=== PATIENT | male | born 1980 | race Caucasian/White ===

== ENCOUNTER 2020-12-27 12:59 | Emergency (ER) | payer MEDICAID, SELFPAY ==
[2020-12-27] VITALS (11 sets, daily range): BP systolic 114–132; BP diastolic 63–98; PULSE 62–92; RESP 9–29; TEMP 36.6; O2SAT 98–100
--- NOTE | 2020-12-27 13:00 | RT.EKG_ITS ---
APPROVED REPORT Exam: Resting ECG Patient Location: E HR:84 bpm ECG Measurements Heart Rate 84 AXIS NJ 135 P 22 QRSd 84 QRS 57 QT 386 T 29 QTc 455 Conclusion Sinus rhythm. Nondiagnostic
--- NOTE | 2020-12-27 13:15 | DI.RAD_ITS ---
EXAM: XR CHEST 2V PA LATERAL CLINICAL HISTORY: chest pain TECHNIQUE: 2D digital imaging was performed. COMPARISON: No exams were available for comparison FINDINGS: MEDIASTINUM: Normal. HEART: Normal. PULMONARY VASCULATURE: Normal. LUNGS: Clear. PLEURAL SPACE: No pleural effusion or pneumothorax. BONE:Within normal limits for the patient's age. OTHER FINDINGS:Normal. IMPRESSION: No acute pulmonary findings. DATA REPOSITORY: RADIATION DOSE DELIVERED:
--- NOTE | 2020-12-27 13:26 | ED.GENADUL_ITS ---
Discharge Plan Disposition Patient Disposition: HOME Condition: Good Discharge Details Clinical Impression: Chest pain, Edema, peripheral Primary Care Provider: Mitul Byrd ED Provider: Yessica Stephenson Home Meds and New Rx's Prescriptions: No Action methadone 40 mg Tablet,Soluble 65 mg PO ONCE RF: 0 furosemide 20 mg Tablet 20 mg PO DAILY AM RF: 0 gabapentin 300 mg Tablet 300 mg PO PRN PRNRF: 0 Discharge Instructions Instructions: Chest Pain (ED) Additional Instructions: Work on improving your diet Recommend eating a balanced diet with healthy proteins such as chicken or fish, veggies, watch sodium in your diet as this can lead to increased swelling in your legs Elevate your legs when you are seated Try to be more active, we until after your stress test and talk to your doctor about an exercise plan Following up for nutrition appointment might be beneficial Take a baby aspirin until you see your doctor for follow-up, 81 mg Do not drink alcohol Cut down on your soda intake Continue taking your Lasix Use your PHILLIP stockings, remove at night, use during the day Return earlier should you have worsening chest pain, worsening shortness of breath, or with any new or progressive symptoms Medical Decision Making No abdominal bruit or pulsatile mass, excellent distal pulses, no suspicion for aortic abnormality PERC negative for pulmonary embolism Troponin negative without chest pain 1 PM yesterday, given her current 2 I think 1 troponin is reasonable EKG does not show acute pathology Chest x-ray within normal limits This was interpreted by radiology I reviewed interpretation and x-ray Patient does have a low albumin and mild elevation in liver enzymes, I suspect this is related to fatty liver The albumin was discussed with patient he will follow up with his primary care physician This could be partially responsible for his peripheral edema We discussed diet and elevation and PHILLIP stockings were applied Early return precautions discussed and patient expressed understanding Patient is reasonable for discharge at this time He has a outpatient stress test ordered for 2 weeks in [place] per patient and he is instructed to follow through this very important Differential Diagnosis Differential Diagnosis: Pulmonary embolism, angina, Aortic Dissection CHF Medical Records Medical records reviewed: Yes I reviewed the patient's medical records. Lab Data Lab results reviewed: Yes I reviewed the patient's lab results. HPI This 40-year-old male presents with reports of chest pain intermittently for the past several months and peripheral edema. He has been evaluated at [facility] for this on several occasions but presents here because he felt like the quality of care was subpar . He states he last had chest pain yesterday midday. He states it lasted approximately 10 minutes. He was not exerting himself and the pain came on. He states his last episode of chest pain prior to that was approximately 2 weeks prior. He denies exertional symptoms. He denies any shortness of breath. Does report he has had fairly significant peripheral edema. He denies any new medications. Patient does have concerning family history with dad having AR at 36 and brother having coronary artery bypass at the age of 30. Patient's Helicobacter. He denies history of hyperlipidemia. He has a remote 20+ year history of IV drug abuse but has not utilized any IV drug since 1999. He takes methadone, this is not a new medication for patient. Denies recent flights, surgeries, long drives, denies exogenous hormones. Denies prior history of coagulopathy. He was started on Lasix by [facility] several days ago which is helping the swelling in his legs. He denies any current chest pain, shortness of breath, nausea, vomiting, or diaphoresis. Aside from some peripheral edema he is asymptomatic at that time. General Date/Time Provider Initiated Documentation: 12/27/20 13:02 . Related Data Home Medications Medication Instructions Recorded Confirmed furosemide 20 mg PO DAILY AM 12/27/20 12/27/20 gabapentin 300 mg PO PRN PRN 12/27/20 12/27/20 methadone 65 mg PO ONCE 12/27/20 12/27/20 Allergies Allergy/AdvReac Type Severity Reaction Status Date / Time No Known Allergies Allergy Unverified 12/27/20 13:08 General Stated Complaint: Chest Pain NICOLE: 2 Review of Systems Narrative: Review of systems negative x7 aside from where indicated in HPI, specifically no current chest pain, shortness of breath, diaphoresis, or nausea, no history of coagulopathy PFSH Social History Smoking/Tobacco Use Status: Never Smoking risk assessment performed?: Yes Alcohol Intake: current Drug use: Never Substance use type: does not use Do you feel safe at home: Yes Do you feel safe in your relationship?: Yes Exam Const General: cooperative and no acute distress Eyes Conjunctivae: conjunctivae normal Chest Chest: normal inspection of the chest Other: No reproducible chest wall tenderness Resp Effort & Inspection: normal respiratory effort Auscultation: clear to auscultation bilaterally Cardio Rate: regular rate Rhythm: regular rhythm Pulses: normal peripheral pulses GI Other: No CVA tenderness, distal pulses intact Skin General skin exam: no rashes or lesions noted Neuro General: patient alert and patient oriented x3 Extrem Other: Symmetrical 2+ edema lower extremities bilaterally DP and PT pulses intact Psych Appearance: well kempt Course Vital Signs Vital signs: Vital Signs Temperature 36.6 C 12/27/20 13:03 Pulse 92 H 12/27/20 13:03 Respiratory Rate 16 12/27/20 13:03 Blood Pressure 122/84 12/27/20 13:03 Pulse Oximetry 99 12/27/20 13:03 Temperature 36.6 C 12/27/20 13:03 Temperature Source Tympanic 12/27/20 13:03 Pulse 92 H 12/27/20 13:03 Respiratory Rate 16 12/27/20 13:13 Respiratory Effort Non-Labored 12/27/20 13:13 Respiratory Depth Normal 12/27/20 13:13 Respiratory Pattern Normal 12/27/20 13:13 Blood Pressure 122/84 12/27/20 13:03 Blood Pressure Position Sitting 12/27/20 13:03 Pulse Oximetry 99 12/27/20 13:03 Oxygen Delivery Method Room Air 12/27/20 13:03 Oxygen Flow Rate 0 12/27/20 13:03 Pain Level 0 12/27/20 13:13
[2020-12-27 13:31] LABS: Abs Immature Grans 0.05 10^3/uL (0.0-0.06); Absolute Basophil Count 0.04 10^3/uL (0.0-0.2); Absolute Eosinophil Count 0.14 10^3/uL (0.0-0.7); Absolute Lymphocyte Count 3.08 10^3/uL (1.2-3.4); Absolute Monocyte Count 0.77 10^3/uL (0.1-0.8); Absolute Neutrophil Count 2.92 10^3/uL (1.2-6.7); Basophils % 0.6; HCT 37.6 % (40.0-50.0); HGB 12.7 g/dL (13.5-17.5); Immature Grans % 0.7; MCH 28.8 pg (27.0-33.0); MCHC 33.8 % (32.0-36.0); MCV 85.3 fL (80-95); Neutrophils % 41.7; Nucleated RBC 0 %; Platelet Count 240 10^3/uL (130-400); RBC 4.41 10^6/uL (4.36-5.78); RDW 12.8 % (11.8-14.1); RDW-SD 39.7 fL
[2020-12-27 13:47] LABS: ALT 93 U/L (16-63); AST 53 U/L (15-37); Albumin 3.3 g/dL (3.4-5.0); Alkaline Phosphatase 75 U/L (46-116); Anion Gap 5.6 mmol/L (3-11); BUN 16 mg/dL (7-18); Bilirubin, Total 0.5 mg/dL (0.2-1.0); CO2 32.4 mmol/L (21.0-32.0); CREATININE 1.2 mg/dL (0.70-1.30); Calcium 8.8 mg/dL (8.5-10.1); Chloride 102 mmol/L (98-107); Glucose 112 mg/dL (74-106); Sodium 140 mmol/L (136-145); Total Protein 6.7 g/dL (6.4-8.2)
[2020-12-27 13:48] LABS: Troponin I < 0.05 ng/mL (<0.06)
[2020-12-27 13:53] LABS: NT-proBNP 7 pg/mL (<300)
--- NOTE | 2020-12-27 14:04 | DI.VRAD_ITS ---
PROCEDURE INFORMATION: Exam: XR Chest, 2 Views Exam date and time: 12/27/2020 1:52 PM Age: 40 years old Clinical indication: Other: Chest pain TECHNIQUE: Imaging protocol: XR of the chest Views: 2 views. COMPARISON: No relevant prior studies available. FINDINGS: Lungs: Unremarkable. No consolidation. Pleural spaces: Unremarkable. No pleural effusion. No pneumothorax. Heart/Mediastinum: Unremarkable. No cardiomegaly. Bones/joints: Unremarkable. IMPRESSION: No evidence for acute abnormality in the chest. Dictated and Authenticated by: Magda Croft MD. Ordering:VINOD Juan MD
== END 2020-12-27 14:56 | disposition home or self-care (01) ==
PROVIDERS: Emergency Provider Physician Assistant; PCP Family Medicine
DX: R07.89 Other chest pain (principal); R60.0 Localized edema
CPT/HCPCS: 36415; 80053; 93005; 99285; 71046; 83880; 84484; 85025; 93010; 99284

== ENCOUNTER 2024-03-20 23:47 | Emergency (ER) | payer MEDICAID, SELFPAY ==
[2024-03-20 23:49] VITALS: BP 170/95; PULSE 105; RESP 16; TEMP 36.7
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
[2024-03-21] VITALS (100 sets, daily range): BP systolic 152; BP diastolic 72; PULSE 57; RESP 8–22; O2SAT 95–98
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
[2024-03-21 00:18] LABS: Abs Immature Grans 0.02 10^3/uL (0.0-0.06); Absolute Basophil Count 0.03 10^3/uL (0.0-0.2); Absolute Eosinophil Count 0.07 10^3/uL (0.0-0.7); Absolute Lymphocyte Count 2.42 10^3/uL (1.2-3.4); Absolute Monocyte Count 0.76 10^3/uL (0.1-0.8); Basophils % 0.3 %; Eosinophils % 0.8 %; HCT 39.4 % (40.0-50.0); HGB 13.1 g/dL (13.5-17.5); Immature Grans % 0.2 %; Lymphocytes % 28.1 %; MCH 28.4 pg (27.0-33.0); MCHC 33.2 % (32.0-36.0); MCV 85 fL (80-95); MPV 8.2 fL (8.0-11.0); Monocytes % 8.8 %; Neutrophils % 61.8 %; Platelet Count 283 10^3/uL (130-400); RBC 4.62 10^6/uL (4.36-5.78); RDW 12.7 % (11.8-14.1)
[2024-03-21] MEDS: Lactated Ringers 1,000 ML 1000 ML IV (00:29)
[2024-03-21] MEDS: ACETAMINOPHEN 1,000 MG/100 ML BTL 400 MG IVPB (00:29)
[2024-03-21 00:35] LABS: ALT 26 U/L (16-63); AST 21 U/L (15-37); Albumin 3.6 g/dL (3.4-5.0); Alkaline Phosphatase 76 U/L (46-116); Anion Gap 7.4 mmol/L (3-11); BUN 12 mg/dL (7-18); Bilirubin, Total 1.1 mg/dL (0.2-1.0); CO2 29.6 mmol/L (21.0-32.0); CREATININE 0.9 mg/dL (0.70-1.30); Calcium 8.3 mg/dL (8.5-10.1); Chloride 103 mmol/L (98-107); Estimated GFR 109.36 (mL/min/1.73m2); Glucose 118 mg/dL (74-106); Potassium 3.4 mmol/L (3.5-5.1); Sodium 140 mmol/L (136-145); Total Protein 7.2 g/dL (6.4-8.2)
[2024-03-21 00:43] LABS: ETHANOL BLOOD < 3.0 mg/dL (<10)
[2024-03-21] MEDS: Normal Saline - Diluent 50 ML VIAL IJ (01:01)
[2024-03-21] MEDS: Omnipaque 350 MG/ML 100 ML BTL IJ (01:01)
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
== END 2024-03-21 03:07 | disposition home or self-care (01) ==
PROVIDERS: Emergency Provider Emergency Medicine; PCP Family Medicine
DX: S20.211A Contusion of right front wall of thorax, initial encounter (principal); S02.40EA Zygomatic fracture, right side, initial encounter for closed fracture; S02.19XA Other fracture of base of skull, initial encounter for closed fracture; S02.31XA Fracture of orbital floor, right side, initial encounter for closed fracture; S02.2XXA Fracture of nasal bones, initial encounter for closed fracture; H11.31 Conjunctival hemorrhage, right eye; Y04.0XXA Assault by unarmed brawl or fight, initial encounter
CPT/HCPCS: 36415; 74177; 80053; 96365; 99285; 70450; 71260; 72125; 80320; 85025; 99284; J0131; J3490

== ENCOUNTER 2025-06-06 20:48 | Inpatient (IN) | payer MEDICAID, SELFPAY ==
[2025-06-06 21:18] VITALS: BP 155/92; PULSE 71; RESP 18; TEMP 36.9; O2SAT 97
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
[2025-06-06 23:14] VITALS: BP 107/71; PULSE 64; RESP 19; TEMP 36.4; O2SAT 99
[2025-06-06 23:17] LABS: Abs Immature Grans 0.21 10^3/uL (0.0-0.06); HCT 32.4 % (40.0-50.0); HGB 10.4 g/dL (13.5-17.5); Immature Grans % 2.3 %; MCH 26.8 pg (27.0-33.0); MCHC 32.1 % (32.0-36.0); MCV 84 fL (80-95); MPV 8.8 fL (8.0-11.0); Platelet Count 262 10^3/uL (130-400); RBC 3.88 10^6/uL (4.36-5.78); RDW 13.6 % (11.8-14.1); RDW-SD 41.3 fL; WBC 9.04 10^3/uL (4.4-10.8)
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
[2025-06-06 23:33] LABS: ALT 27 U/L (16-63); AST 18 U/L (15-37); Albumin 2.6 g/dL (3.4-5.0); Alkaline Phosphatase 62 U/L (46-116); Anion Gap 5.9 mmol/L (3-11); BUN 18 mg/dL (7-18); Bilirubin, Total 0.2 mg/dL (0.2-1.0); C-Reactive Protein 5.90 mg/dL (<or=0.5); CO2 32.1 mmol/L (21.0-32.0); Calcium 8.9 mg/dL (8.5-10.1); Chloride 102 mmol/L (98-107); Estimated GFR 112.61 (mL/min/1.73m2); Glucose 90 mg/dL (74-106); Potassium 4.3 mmol/L (3.5-5.1); Sodium 140 mmol/L (136-145); Total Protein 6.7 g/dL (6.4-8.2)
[2025-06-06] MEDS: Acetaminophen 500 MG TAB 1000 MG PO (23:41)
[2025-06-06] MEDS: Ibuprofen 400 MG TAB PO (23:41)
[2025-06-06] MEDS: CEFEPIME 2 GM in Normal Saline 100 ML IVPB (23:43)
[2025-06-06 23:46] LABS: Procalcitonin < 0.10 ng/mL
[2025-06-07 00:05] VITALS: BP 138/89; PULSE 62; RESP 18; TEMP 36.4; O2SAT 99
[2025-06-07 00:44] LABS: COVID-19 PCR Negative (Negative); RSV PCR Negative (Negative)
[2025-06-07] MEDS: VANCOMYCIN 1,500 MG in Normal Saline 500 ML 333.3333 MG IVPB (00:49)
[2025-06-07 03:23] VITALS: BP 92/57; PULSE 58; RESP 16; TEMP 36.8; O2SAT 98
[2025-06-07] MEDS: Normal Saline Flush 10 ML SYR IVP ×4 (05:53→22:33)
[2025-06-07 06:55] LABS: HCT 38.2 % (40.0-50.0); HGB 11.9 g/dL (13.5-17.5); MCH 26.9 pg (27.0-33.0); MCHC 31.2 % (32.0-36.0); MCV 86 fL (80-95); MPV 8.9 fL (8.0-11.0); Platelet Count 238 10^3/uL (130-400); RBC 4.42 10^6/uL (4.36-5.78); RDW 13.5 % (11.8-14.1); RDW-SD 42.7 fL; WBC 6.37 10^3/uL (4.4-10.8)
[2025-06-07 07:15] LABS: ALT 24 U/L (16-63); AST 16 U/L (15-37); Albumin 2.2 g/dL (3.4-5.0); Alkaline Phosphatase 59 U/L (46-116); Anion Gap 7.7 mmol/L (3-11); BUN 17 mg/dL (7-18); Bilirubin, Total 0.2 mg/dL (0.2-1.0); CO2 27.3 mmol/L (21.0-32.0); Calcium 8.5 mg/dL (8.5-10.1); Chloride 105 mmol/L (98-107); Estimated GFR 117.25 (mL/min/1.73m2); Glucose 85 mg/dL (74-106); Magnesium 1.9 mg/dL (1.8-2.4); Potassium 4.3 mmol/L (3.5-5.1); Sodium 140 mmol/L (136-145); Total Protein 6.4 g/dL (6.4-8.2)
[2025-06-07] MEDS: CEFEPIME 2 GM in Normal Saline 100 ML IVPB ×2 (07:49→16:51)
[2025-06-07] MEDS: Enoxaparin 40 MG/0.4 ML SYR SC (07:49)
[2025-06-07 08:02] VITALS: BP 114/79; PULSE 52; RESP 16; TEMP 36.7; O2SAT 97
[2025-06-07] MEDS: Acetaminophen 325 MG TAB 650 MG PO ×2 (09:05→22:27)
[2025-06-07] MEDS: VANCOMYCIN/WATER (PEG) 1.25 GM/250 ML BAG IVPB ×2 (09:39→21:56)
[2025-06-07 11:16] LABS: Glucose Negative (Negative)
[2025-06-07 11:20] LABS: Cannabinoids THC Negative (Negative); METHADONE URINE SCREEN Negative (Negative)
[2025-06-07 11:34] VITALS: BP 137/86; PULSE 82; RESP 16; TEMP 36.8; O2SAT 100
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
[2025-06-07 20:39] VITALS: BP 117/67; PULSE 75; RESP 20; TEMP 37; O2SAT 98
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
[2025-06-07] MEDS: Ketorolac 30 MG/ML VIAL IVP (22:32)
[2025-06-07 22:48] VITALS: BP 107/60; PULSE 73; RESP 20; TEMP 37.2; O2SAT 97
[2025-06-08] MEDS: CEFEPIME 2 GM in Normal Saline 100 ML IVPB ×2 (00:32→07:33)
[2025-06-08 03:39] VITALS: BP 91/59; PULSE 60; RESP 18; TEMP 36.9; O2SAT 97
[2025-06-08 07:17] LABS: HCT 31.1 % (40.0-50.0); HGB 10.1 g/dL (13.5-17.5); MCH 27.2 pg (27.0-33.0); MCHC 32.5 % (32.0-36.0); MCV 84 fL (80-95); MPV 8.4 fL (8.0-11.0); Platelet Count 282 10^3/uL (130-400); RBC 3.72 10^6/uL (4.36-5.78); RDW 13.4 % (11.8-14.1); RDW-SD 41.2 fL; WBC 6.18 10^3/uL (4.4-10.8)
[2025-06-08] MEDS: Enoxaparin 40 MG/0.4 ML SYR SC (07:34)
[2025-06-08] MEDS: Normal Saline Flush 10 ML SYR IVP (07:34)
[2025-06-08 07:46] LABS: ALT 21 U/L (16-63); AST 11 U/L (15-37); Albumin 2.1 g/dL (3.4-5.0); Alkaline Phosphatase 56 U/L (46-116); Anion Gap 6.2 mmol/L (3-11); BUN 13 mg/dL (7-18); Bilirubin, Total 0.2 mg/dL (0.2-1.0); CO2 29.8 mmol/L (21.0-32.0); Calcium 8.3 mg/dL (8.5-10.1); Chloride 105 mmol/L (98-107); Estimated GFR 112.61 (mL/min/1.73m2); Glucose 104 mg/dL (74-106); Magnesium 1.8 mg/dL (1.8-2.4); Potassium 4.0 mmol/L (3.5-5.1); Sodium 141 mmol/L (136-145); Total Protein 6.0 g/dL (6.4-8.2)
[2025-06-08 07:57] VITALS: BP 122/83; PULSE 53; RESP 17; TEMP 36.8; O2SAT 98
[2025-06-08] MEDS: VANCOMYCIN/WATER (PEG) 1.25 GM/250 ML BAG IVPB (08:24)
[2025-06-08 11:44] LABS: Vancomycin, Trough 14.6 ug/mL
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
--- NOTE | 2025-06-08 13:17 | PDOC.CMDIS ---
Date of service: 06/08/25 Time of Service: 14:59 LACE Index Scoring Tool Questions: Length of Stay (in days): 2 Was the patient admitted via the E.D.?: Yes E.D. Visits: 1 Answers: Total Score: 6 Risk of Readmission: Low Risk Care Management Discharge Plan Reason for Hospitalization: Cellulitis left lower extremity Discharge Plan: Adolfo will discharge home and is not requiring further antibiotics. He will follow up with the [facility], and plan of care. CM recommended establishing care at his follow-up appointment. He will be transported via private vehicle by family. Patient/Family Education Needs: Review of discharge instructions, activity, limitation, and plan of care. Discuss ask me three.
[2025-06-08] MEDS: DALBAVANCIN 1,500 MG in DEXTROSE 5%-WATER 325 ML 650 MG IVPB (13:48)
== END 2025-06-08 14:45 | disposition home or self-care (01) | DRG 603 ==
LOC: ER 22:41 → MS 23:30
PROVIDERS: Nurse Practitioner Acute Care; Admitting Provider Family Medicine; Emergency Provider Physician Assistant; Responsible Provider Nurse Practitioner Acute Care; Visit Provider Family Medicine
DX: L03.116 Cellulitis of left lower limb (principal); F43.10 Post-traumatic stress disorder, unspecified; Z94.5 Skin transplant status; F19.11 Other psychoactive substance abuse, in remission; F41.9 Anxiety disorder, unspecified
CPT/HCPCS: 00123; 36415; 80053; 80307; 84145; 85027; 87040; 87637; 99285; J1650; 80202; 81003; 83605; 83735; 85025; 86140; 99222; 99233; 99239; J0692; J0875; J1885; J3373